=== PATIENT | male | born 1955 ===

== ENCOUNTER 2017-05-28 14:44 | Emergency (ER) | payer OTHER, SELFPAY ==
[2017-05-28 14:58] VITALS: BP 115/63; PULSE 83; RESP 20; TEMP 98.7; O2SAT 97
--- NOTE | 2017-05-28 16:03 | CT ---
PROCEDURE: CT HEAD WITHOUT CONTRAST. HISTORY: head injury, hit with rock, headache COMPARISON: None available. TECHNIQUE: Axial computed tomography images were obtained through the head/brain without intravenous contrast. Coronal and sagittal reconstructed images. Radiation dose: Total exam DLP = 843.31 mGy-cm. This CT exam was performed using one or more of the following dose reduction techniques: Automated exposure control, adjustment of the mA and/or kV according to patient size, and/or use of iterative reconstruction technique. FINDINGS: HEMORRHAGE: No intracranial hemorrhage. BRAIN: No mass effect or edema. No atrophy or chronic microvascular ischemic changes. VENTRICLES: Unremarkable. No hydrocephalus. CALVARIUM: Unremarkable. PARANASAL SINUSES: Unremarkable as visualized. No significant inflammatory changes. MASTOID AIR CELLS: Unremarkable as visualized. No inflammatory changes. OTHER FINDINGS: None. IMPRESSION: No acute intracranial abnormalities. No significant findings to account for the clinical presentation.
--- NOTE | 2017-05-28 16:14 | ED PDOC ---
HPI: Headache Time Seen by Provider: 05/28/17 15:14 Chief Complaint (Nursing): Headache Chief Complaint (Provider): Headache, scalp abrasion Past Medical History Vital Signs: Last Vital Signs Temp 98.7 F 05/28/17 14:57 Pulse 83 05/28/17 14:57 Resp 20 05/28/17 14:57 BP 115/63 05/28/17 14:57 Pulse Ox 97 05/28/17 14:57 - Family History Family History: States: Unknown Family Hx - Home Medications Home Medications: Ambulatory Orders Medication Instructions Recorded Tamsulosin [Flomax] 0.4 mg PO DAILY #30 cap 12/28/16 - Allergies Allergies/Adverse Reactions: Allergies Allergy/AdvReac Type Severity Reaction Status Date / Time No Known Allergies Allergy Verified 12/28/16 10:48 - ECG O2 Sat by Pulse Oximetry: 97 Disposition - Clinical Impression Clinical Impression: Head injury, Scalp abrasion - Disposition Disposition Time: 16:14 Condition: GOOD Instructions: Abrasion (ED) Forms: [employer] [facility] (Czech)
== END 2017-05-28 16:35 | disposition home or self-care (01) ==
LOC: H.ER 14:44
DX: S09.90XA Unspecified injury of head, initial encounter (principal); S00.81XA Abrasion of other part of head, initial encounter; W22.8XXA Striking against or struck by other objects, initial encounter; Y92.89 Other specified places as the place of occurrence of the external cause

== ENCOUNTER 2018-03-12 13:34 | Inpatient (IN) | payer SELFPAY ==
--- NOTE | 2018-03-12 14:23 | ED PDOC ---
HPI: SOB/CHF/COPD Time Seen by Provider: 03/12/18 14:00 Chief Complaint (Nursing): Respiratory Distress Chief Complaint (Provider): CHRISTINA History Per: Patient, Carboy Filler History/Exam Limitations: no limitations, language barrier Onset/Duration Of Symptoms: Days (three), Waxing/Waning, Intermittent Episodes Current Symptoms Are (Timing): Still Present Context: pt has ILD and sees a pulmonolgist Quality: Sharp Exacerbating Factor(s): Exertion, Laying Flat Current Respiratory Medications: See Home Med List, Albuterol, Prednisone Severity: Moderate Past Medical History Reviewed: Historical Data, Nursing Documentation, Vital Signs Vital Signs: Last Vital Signs Temp 98.7 F 03/12/18 13:51 Pulse 80 03/12/18 13:53 Resp 18 03/12/18 13:53 BP 141/80 03/12/18 13:51 Pulse Ox 95 03/12/18 18:18 - Family History Family History: States: Unknown Family Hx - Home Medications Home Medications: Ambulatory Orders Medication Instructions Recorded Amoxicillin/Clavulanate [Augmentin 1 tab PO BID 03/12/18 875 MG-125 MG] Budesonide/Formoterol Fumarate 2 puff IH Q12 03/12/18 [Symbicort 160-4.5 Mcg Inhaler] Fluticasone Nasal [Flonase] 2 spray ALIRIO DAILY PRN 03/12/18 Prednisone [Deltasone] 40 mg PO DAILY 03/12/18 - Allergies Allergies/Adverse Reactions: Allergies Allergy/AdvReac Type Severity Reaction Status Date / Time No Known Allergies Allergy Verified 12/28/16 10:48 Wells Criteria for PE - Wells Criteria for Pulmonary Embolism Clinical Signs and Symptoms of DVT: No P.E is #1 Diagnosis, or Equally Likely: No Heart Rate >100: No Immobilization at least 3 days;Surgery previous 4 weeks: No Previous, objectively diagnosed PE or DVT: No Hemoptysis: No Malignancy w/treatment within 6 months, or palliative: No Total Score: 0 Review of Systems ROS Statement: Except As Marked, All Systems Reviewed And Found Negative Respiratory: Positive for: Shortness of Breath, Pleuritic Pain, Wheezing Physical Exam - Reviewed Nursing Documentation Reviewed: Yes Vital Signs Reviewed: Yes - Physical Exam Appears: Positive for: Well, Non-toxic, Uncomfortable Head Exam: Positive for: ATRAUMATIC, NORMAL INSPECTION, NORMOCEPHALIC Skin: Positive for: Normal Color, Warm, Dry. Negative for: Diaphoresis, Jaundice ENT: Positive for: Normal ENT Inspection Neck: Positive for: Normal, Painless ROM, Supple. Negative for: Decreased ROM Cardiovascular/Chest: Positive for: Regular Rate, Rhythm. Negative for: Edema, Murmur, Bradycardia, Tachycardia, Friction Rub Respiratory: Positive for: Crackles, Wheezing. Negative for: Decreased Breath Sounds, Accessory Muscle Use, Respiratory Distress, Plerual Rub Pulses-Carotid (L): 2+ Pulses-Carotid (R): 2+ Pulses-Radial (L): 2+ Pulses-Radial (R): 2+ - Laboratory Results Result Diagrams: 03/12/18 14:56 03/12/18 14:56 - ECG ECG: Positive for: Interpreted By Me ECG Rhythm: Positive for: Normal QRS, Normal ST Segment O2 Sat by Pulse Oximetry: 95 Nebulizer Treatments/Peak Flow - Duonebs Number of Bronchodilator Doses given?: 3 - Steroid Treatment Steroid: IV - Clinical Response Clinical Response: Unchanged Medical Decision Making Medical Decision Making: R/O acute pulmonary findings no PNA discussed case with pulmonolgist and PMD admit for acute SOB/dypsnea to tely Disposition - Clinical Impression Clinical Impression: Shortness of breath at rest, Acute dyspnea - Patient ED Disposition Is Patient to be Admitted: Yes (Admit under Dr Chen Service) Discussed With : Suzanne Mir (Pulmonolgist: Indicates patient has ILD of chronic nature, but most probably has overlying conditions as well) Doctor Will See Patient In The: Hospital Counseled Patient/Family Regarding: Studies Performed, Diagnosis - Disposition Disposition Time: 18:17 Condition: STABLE - Pt Status Changed To: Hospital Disposition Of: Inpatient - Admit Certification Admit to Inpatient:: After my assessment, the patient will require hospitalization for at least two midnights. This is because of the severity of symptoms shown, intensity of services needed, and/or the medical risk in this patient being treated as an outpatient.
--- NOTE | 2018-03-12 14:35 | RAD ---
HISTORY: [place] COMPARISON: Chest radiograph dated 01/20/2018 TECHNIQUE: Chest PA and lateral FINDINGS: LUNGS: Bilateral fibrotic and cystic change. No focal consolidation. PLEURA: No significant pleural effusion identified. No pneumothorax apparent. CARDIOVASCULAR: Cardiomediastinal silhouette unchanged. OSSEOUS STRUCTURES: Unchanged. VISUALIZED UPPER ABDOMEN: Normal. OTHER FINDINGS: None. IMPRESSION: Grossly stable appearance of bilateral fibrotic and cystic change. No definite consolidation or pleural effusion.
[2018-03-12 15:00] LABS: BASO % 0.3 % (0.0-2.0); EOS % 0.1 % (0.0-4.0); HEMOGLOBIN 14.8 g/dL (12.0-18.0); LYMPH # 0.5 K/uL (1.0-4.3); LYMPH % 4.9 % (20.0-40.0); MEAN CELL VOLUME 96.5 fl (80.0-94.0); MEAN CORPUSCULAR HEMOGLOBIN 32.6 pg (27.0-31.0); MEAN CORPUSCULAR HGB CONC 33.7 g/dL (33.0-37.0); MONO # 0.5 K/uL (0.0-0.8); MONO % 4.9 % (0.0-10.0); NEUT # 8.7 K/uL (1.8-7.0); NEUT % 89.8 % (50.0-75.0); PLATELET COUNT 318 K/uL (130-400); RBC 4.56 Mil/uL (4.40-5.90); RED CELL DISTRIBUTION WIDTH 14.5 % (11.5-14.5); WHITE BLOOD COUNT 9.7 K/uL (4.8-10.8)
[2018-03-12] MEDS ORDERED: Albuterol-Ipratrop 3 mg / 0.5 (3 ml) UD INH STA (15:06)
[2018-03-12 15:10] LABS: INR 1.1 (0.9-1.2); PROTHROMBIN TIME 12.1 Seconds (9.8-13.1)
[2018-03-12] MEDS ORDERED: Albuterol-Ipratrop 3 mg / 0.5 (3 ml) UD ONE (15:12)
[2018-03-12 15:17] LABS: ALB/GLOB RATIO 0.9 (1.0-2.1); ALBUMIN 3.1 g/dL (3.5-5.0); ALT/SGPT 66 U/L (21-72); AST/SGOT 35 U/L (17-59); BLOOD UREA NITROGEN 22 mg/dl (9-20); CALCIUM 9.4 mg/dL (8.4-10.2); GFR AFRICAN-AMERICAN > 60; GFR NON-AFRICAN AMERICAN > 60
[2018-03-12 15:28] LABS: B-TYPE NATRIURETIC PEPTIDE 205 pg/ml (0-900)
[2018-03-12] MEDS ORDERED: methylPREDNISolone 60 MG in Sodium Chloride 0.9% 50 ML IVP STA (15:33)
[2018-03-12 16:11] LABS: ANISOCYTOSIS SLIGHT; BANDS 2 % (0-2); LYMPHOCYTE 5 % (20-50); MONOCYTE 4 % (0-10); MYELOCYTE 1 % (0-0); NEUTROPHIL 88 % (42-75); PLATELET ESTIMATE NORMAL (NORMAL); TOTAL CELLS COUNTED 100
[2018-03-12 16:12] LABS: LARGE PLATELETS PRESENT
[2018-03-12] MEDS ORDERED: Albuterol-Ipratrop 3 mg / 0.5 (3 ml) UD INH PRN (23:03)
[2018-03-13 00:08] LABS: BLOOD UREA NITROGEN 21 mg/dl (9-20); CALCIUM 9.6 mg/dL (8.4-10.2); GFR AFRICAN-AMERICAN > 60; GFR NON-AFRICAN AMERICAN > 60; HDL CHOLESTEROL 22 MG/DL (30-70)
[2018-03-13 00:18] LABS: LDL CHOLESTEROL 88 mg/dL (0-129)
[2018-03-13 05:11] LABS: HEMOGLOBIN 15.7 g/dL (12.0-18.0); MEAN CELL VOLUME 96.5 fl (80.0-94.0); MEAN CORPUSCULAR HEMOGLOBIN 32.8 pg (27.0-31.0); RBC 4.78 Mil/uL (4.40-5.90); RED CELL DISTRIBUTION WIDTH 14.7 % (11.5-14.5); WHITE BLOOD COUNT 12.6 K/uL (4.8-10.8)
[2018-03-13] MEDS ORDERED: Pneumococcal 23-Valent Vaccine IM ONE (06:00)
[2018-03-13] MEDS: Sodium Chloride 0.9% 1,000 ML IV SCH ×2 (06:17→12:00)
[2018-03-13] MEDS: Fluticasone-Salmeterol 250-50mcg Diskus IH SCH ×2 (08:48→21:34)
[2018-03-13] MEDS ORDERED: Patient's Own Med (Budesonide/Formoterol Fumarate [Symbicort 160-4.5 Mcg Inhaler] 2 PUFF) IH SCH (09:00)
--- NOTE | 2018-03-13 10:57 | CARD ---
APPROVED REPORT EKG Measurement Heart [id number] <Conclusion> Normal sinus rhythm Possible Left atrial enlargement Borderline ECG
[2018-03-13] MEDS ORDERED: Lidocaine 2% Jelly (Uro-Jet) TOP ONE (12:31)
--- NOTE | 2018-03-13 13:20 | CP.PCM.PN ---
Subjective - Date & Time of Evaluation Date of Evaluation: 03/13/18 Time of Evaluation: 13:17 - Subjective Subjective: 62 year old male admited to telemetry w sob pt having difficulty passing arredondo. A urinary retentionP Arredondo inserted ,suggest urine c&s leave arredondo. elective gu eval after med conditions maximally impoved. Riddhi Objective - Vital Signs/Intake and Output Vital Signs (last 24 hours): Temp Pulse Resp BP Pulse Ox 97.4 F L 74 20 140/74 99 03/13/18 12:53 03/13/18 12:53 03/13/18 12:53 03/13/18 12:53 03/13/18 12:53 - Medications Medications: Current Medications Acetaminophen (Tylenol 325mg Tab) 650 mg PO Q6 PRN PRN Reason: Pain, Mild (1-3) Albuterol/Ipratropium (Duoneb 3 Mg/0.5 Mg (3 Ml) Ud) 3 ml INH RQ6 PRN PRN Reason: Shortness of Breath Fluticasone Propionate (Flonase) 2 spr ALIRIO DAILY PRN PRN Reason: Nasal congestion Sodium Chloride (Sodium Chloride 0.9%) 1,000 mls @ 80 mls/hr IV .[id number] [facility] Stop: 03/13/18 23:05 Last Admin: 03/13/18 06:17 Dose: 80 mls/hr Prednisone (Prednisone Tab) 40 mg PO DAILY [facility] Last Admin: 03/13/18 08:48 Dose: 40 mg Fluticasone/Salmeterol (Advair Diskus 250/50) 1 puff IH Q12 [facility] Last Admin: 03/13/18 08:48 Dose: 1 puff - Labs Labs: 03/13/18 04:20 03/12/18 23:55 PT 12.1 Seconds (9.8-13.1) 03/12/18 14:56 INR 1.1 (0.9-1.2) 03/12/18 14:56
[2018-03-14] MEDS: Fluticasone-Salmeterol 250-50mcg Diskus IH SCH ×2 (09:56→21:50)
--- NOTE | 2018-03-14 15:04 | CP.PCM.HP ---
History of Present Illness - History of Present Illness History of Present Illness: This is a 62 y/o male admitted for increasing SOB and cough for the past few days. He has been on daily prednisone and budesonide for a possible chronic lung disease. CXR at the ER showed bilateral fibrotc and cystic changes. Past Patient History - Past Medical History & Family History Past Medical History?: No - Past Social History Smoking Status: Unknown If Ever Smoked - CARDIAC Hx Cardiac Disorders: No - PULMONARY Hx Respiratory Disorders: Yes (ILD) - NEUROLOGICAL Hx Neurological Disorder: No - HEENT Hx HEENT Problems: No - RENAL Hx Chronic Kidney Disease: No - ENDOCRINE/METABOLIC Hx Endocrine Disorders: No - HEMATOLOGICAL/ONCOLOGICAL Hx Blood Disorders: No - INTEGUMENTARY Hx Dermatological Problems: No - MUSCULOSKELETAL/RHEUMATOLOGICAL Hx Musculoskeletal Disorders: No Hx Falls: No - GASTROINTESTINAL Hx Gastrointestinal Disorders: No - GENITOURINARY/GYNECOLOGICAL Hx Genitourinary Disorders: No - PSYCHIATRIC Hx Psychophysiologic Disorder: No Hx Substance Use: No - SURGICAL HISTORY Hx Surgeries: No - ANESTHESIA Hx Anesthesia: No Meds Allergies/Adverse Reactions: Allergies Allergy/AdvReac Type Severity Reaction Status Date / Time No Known Allergies Allergy Verified 12/28/16 10:48 Results - Vital Signs Recent Vital Signs: Last Vital Signs Temp 98.0 F 03/14/18 12:12 Pulse 68 03/14/18 12:12 Resp 20 03/14/18 12:12 BP 110/50 L 03/14/18 12:12 Pulse Ox 96 03/14/18 12:12 - Labs Result Diagrams: 03/13/18 04:20 03/12/18 23:55
--- NOTE | 2018-03-14 15:06 | CP.PCM.PN ---
Subjective - Date & Time of Evaluation Date of Evaluation: 03/14/18 Time of Evaluation: 15:06 - Subjective Subjective: Patient claimns that he feels better but still with recurrent SOB Noted persistent rhonchi and crepitations on both mid lung right worse than left Objective - Vital Signs/Intake and Output Vital Signs (last 24 hours): Temp Pulse Resp BP Pulse Ox 98.0 F 68 20 110/50 L 96 03/14/18 12:12 03/14/18 12:12 03/14/18 12:12 03/14/18 12:12 03/14/18 12:12 Intake and Output: 03/14/18 03/14/18 06:59 18:59 Output Total 1300 Balance -1300 - Medications Medications: Current Medications Acetaminophen (Tylenol 325mg Tab) 650 mg PO Q6 PRN PRN Reason: Pain, Mild (1-3) Albuterol/Ipratropium (Duoneb 3 Mg/0.5 Mg (3 Ml) Ud) 3 ml INH RQ6 PRN PRN Reason: Shortness of Breath Fluticasone Propionate (Flonase) 2 spr ALIRIO DAILY PRN PRN Reason: Nasal congestion Prednisone (Prednisone Tab) 40 mg PO DAILY [facility] Last Admin: 03/14/18 09:58 Dose: 40 mg Fluticasone/Salmeterol (Advair Diskus 250/50) 1 puff IH Q12 [facility] Last Admin: 03/14/18 09:56 Dose: 1 puff - Labs Labs: 03/13/18 04:20 03/12/18 23:55 PT 12.1 Seconds (9.8-13.1) 03/12/18 14:56 INR 1.1 (0.9-1.2) 03/12/18 14:56 - Head Exam Head Exam: NORMAL INSPECTION - Eye Exam Eye Exam: Normal appearance - ENT Exam ENT Exam: Mucous Membranes Moist - Respiratory Exam Respiratory Exam: Rhonchi - Cardiovascular Exam Cardiovascular Exam: REGULAR RHYTHM Assessment and Plan (1) Interstitial pulmonary fibrosis Status: Acute (2) Acute dyspnea Status: Acute - Assessment and Plan (Free Text) Plan: Cont meds Cont tx Cont resp tx dc plans
[2018-03-15] MEDS: Fluticasone-Salmeterol 250-50mcg Diskus IH SCH ×2 (09:26→22:00)
[2018-03-15] MEDS ORDERED: Iohexol 300 100 ML IJ ONE (09:27)
[2018-03-15] MEDS ORDERED: Sodium Chloride 0.9% 50 ML IV ONE (09:27)
[2018-03-15] MEDS ORDERED: methylPREDNISolone 80 MG in Sodium Chloride 0.9% 50 ML IVPB SCH (11:15)
--- NOTE | 2018-03-15 11:43 | CT ---
PROCEDURE: CT Chest with contrast HISTORY: abnormal CXR COMPARISON: 01/20/2018. TECHNIQUE: Contiguous axial images were obtained through the chest without an with intravenous contrast enhancement. Sagittal and coronal reconstructions were performed. IV contrast: 95 cc Omnipaque 300 Radiation dose (DLP): 437.91 mGy-cm. This CT exam was performed using one or more of the following dose reduction techniques: Automated exposure control, adjustment of the mA and/or kV according to patient size, and/or use of iterative reconstruction technique. FINDINGS: LUNGS: Since the prior examination, there has been no significant interval change in cystic changes in both lungs worse in the left apex and lingula, bilateral subpleural honeycombing and interstitial fibrosis 0 worse in the lower lobes. There is no mass or consolidation. There are no endobronchial lesions. MEDIASTINUM: The aorta is not dilated. There is borderline cardiomegaly. No pericardial effusion. Main pulmonary artery unremarkable. No vascular congestion. Subcentimeter subcarinal lymph nodes are likely reactive in etiology. No pathologic lymphadenopathy. No abnormal enhancement. PLEURA: No pleural fluid. No pneumothorax. BONES: No fracture. No destructive lesion. Within normal limits for the patient's age. UPPER ABDOMEN: Grossly unremarkable. OTHER FINDINGS: None. IMPRESSION: Little interval change in diffuse interstitial fibrosis and cystic changes in the lungs, worse in the left lung. No active pulmonary disease.
[2018-03-15 12:12] LABS: ABG ALLEN TEST YES; ARTERIAL BLOOD GAS HCO3 27.8 mmol/L (21-28); ARTERIAL BLOOD GAS HEMOGLOBIN 15.9 g/dL (11.7-17.4); ARTERIAL BLOOD GAS O2 CAPACITY 21.6 mL/dL (16-24); ARTERIAL BLOOD GAS O2 CONTENT 20.5 ML/dL (15-23); ARTERIAL BLOOD GAS O2 SAT 94.9 % (95-98); ARTERIAL BLOOD GAS PCO2 45 mm/Hg (35-45); ARTERIAL BLOOD GAS PH 7.42 (7.35-7.45); ARTERIAL BLOOD GAS PO2 62 mm/Hg (80-100); ARTERIAL BLOOD GAS TCO2 30.6 mmol/L (22-28)
[2018-03-15] MEDS: Pantoprazole 40 mg EC Tab PO SCH (13:11)
[2018-03-15] MEDS: Albuterol-Ipratrop 3 mg / 0.5 (3 ml) UD INH SCH ×2 (13:24→19:27)
[2018-03-15] MEDS: MethylPREDNISolone 40 mg Vial IV SCH (18:55)
--- NOTE | 2018-03-16 00:29 | CP.PCM.PN ---
Subjective - Date & Time of Evaluation Date of Evaluation: 03/15/18 Time of Evaluation: 18:30 - Subjective Subjective: Belinda feels a lot better Has no fever Has no chest pain Still with rhonchi CT chest showed chronic changes and interstitial fibrosis. Claims to have better response with MDI's and Objective - Vital Signs/Intake and Output Vital Signs (last 24 hours): Temp Pulse Resp BP Pulse Ox 97.4 F L 61 18 107/61 95 03/16/18 00:16 03/16/18 00:16 03/16/18 00:16 03/16/18 00:16 03/16/18 00:16 Intake and Output: 03/15/18 03/16/18 18:59 06:59 Intake Total 1000 Output Total 750 Balance 250 - Medications Medications: Current Medications Acetaminophen (Tylenol 325mg Tab) 650 mg PO Q6 PRN PRN Reason: Pain, Mild (1-3) Albuterol/Ipratropium (Duoneb 3 Mg/0.5 Mg (3 Ml) Ud) 3 ml INH RQ6 [facility] Last Admin: 03/15/18 19:27 Dose: 3 ml Fluticasone Propionate (Flonase) 2 spr ALIRIO DAILY PRN PRN Reason: Nasal congestion Methylprednisolone (Solu-Medrol) 80 mg IV Q8 [facility] Last Admin: 03/15/18 18:55 Dose: 80 mg Pantoprazole Sodium (Protonix Ec Tab) 40 mg PO DAILY [facility] Last Admin: 03/15/18 13:11 Dose: 40 mg Fluticasone/Salmeterol (Advair Diskus 250/50) 1 puff IH Q12 [facility] Last Admin: 03/15/18 22:00 Dose: 1 puff - Labs Labs: 03/13/18 04:20 03/12/18 23:55 PT 12.1 Seconds (9.8-13.1) 03/12/18 14:56 INR 1.1 (0.9-1.2) 03/12/18 14:56 - Head Exam Head Exam: NORMAL INSPECTION - Eye Exam Eye Exam: Normal appearance - ENT Exam ENT Exam: Mucous Membranes Moist - Respiratory Exam Respiratory Exam: Rales, NORMAL BREATHING PATTERN - Cardiovascular Exam Cardiovascular Exam: REGULAR RHYTHM - GI/Abdominal Exam GI & Abdominal Exam: Normal Bowel Sounds - Neurological Exam Neurological Exam: Alert, Awake, Oriented x3 Assessment and Plan (1) Interstitial pulmonary fibrosis Status: Acute - Assessment and Plan (Free Text) Plan: Cont meds Cont tx Cont MDI's pulmonary eval outpatient
[2018-03-16] MEDS: Albuterol-Ipratrop 3 mg / 0.5 (3 ml) UD INH SCH ×4 (01:00→19:03)
[2018-03-16] MEDS: MethylPREDNISolone 40 mg Vial IV SCH (02:28)
[2018-03-16] MEDS: Fluticasone-Salmeterol 250-50mcg Diskus IH SCH ×2 (08:32→21:55)
--- NOTE | 2018-03-16 08:32 | CP.PCM.PN ---
Subjective - Date & Time of Evaluation Date of Evaluation: 03/16/18 Time of Evaluation: 08:31 - Subjective Subjective: FEELS BETTER SOB IMPROVED COUGH LESS Objective - Vital Signs/Intake and Output Vital Signs (last 24 hours): Temp Pulse Resp BP Pulse Ox 97.7 F 63 18 113/54 L 95 03/16/18 07:56 03/16/18 07:56 03/16/18 07:56 03/16/18 07:56 03/16/18 07:56 Intake and Output: 03/16/18 03/16/18 06:59 18:59 Intake Total 400 Output Total 1100 Balance -700 - Medications Medications: Current Medications Acetaminophen (Tylenol 325mg Tab) 650 mg PO Q6 PRN PRN Reason: Pain, Mild (1-3) Albuterol/Ipratropium (Duoneb 3 Mg/0.5 Mg (3 Ml) Ud) 3 ml INH RQ6 [facility] Last Admin: 03/16/18 07:35 Dose: 3 ml Fluticasone Propionate (Flonase) 2 spr ALIRIO DAILY PRN PRN Reason: Nasal congestion Methylprednisolone 40 mg/ (Sodium Chloride) 50 mls @ 100 mls/hr IVPB Q12 [facility] Pantoprazole Sodium (Protonix Ec Tab) 40 mg PO DAILY [facility] Last Admin: 03/15/18 13:11 Dose: 40 mg Fluticasone/Salmeterol (Advair Diskus 250/50) 1 puff IH Q12 [facility] Last Admin: 03/15/18 22:00 Dose: 1 puff - Labs Labs: 03/13/18 04:20 03/12/18 23:55 PT 12.1 Seconds (9.8-13.1) 03/12/18 14:56 INR 1.1 (0.9-1.2) 03/12/18 14:56 - Constitutional Appears: No Acute Distress - Head Exam Head Exam: ATRAUMATIC, NORMAL INSPECTION, NORMOCEPHALIC - Eye Exam Eye Exam: EOMI, Normal appearance, PERRL Pupil Exam: NORMAL ACCOMODATION, PERRL - ENT Exam ENT Exam: Mucous Membranes Moist, Normal Exam - Neck Exam Neck Exam: Full ROM, Normal Inspection. absent: Lymphadenopathy - Respiratory Exam Respiratory Exam: Prolonged Expiratory Phase, Rales, NORMAL BREATHING PATTERN - Cardiovascular Exam Cardiovascular Exam: REGULAR RHYTHM, +S1, +S2. absent: Murmur - GI/Abdominal Exam GI & Abdominal Exam: Soft, Normal Bowel Sounds. absent: Tenderness - Rectal Exam Rectal Exam: NORMAL INSPECTION - Extremities Exam Extremities Exam: Full ROM, Normal Capillary Refill, Normal Inspection. absent : Joint Swelling, Pedal Edema - Back Exam Back Exam: NORMAL INSPECTION - Neurological Exam Neurological Exam: Alert, Awake, CN II-XII Intact, Normal Gait, Oriented x3 - Psychiatric Exam Psychiatric exam: Normal Affect, Normal Mood - Skin Skin Exam: Dry, Intact, Normal Color, Warm Assessment and Plan - Assessment and Plan (Free Text) Assessment: ACUTE EXAC OF PULMONARY FIBROSIS URI Plan: TAPER STEROIDS
[2018-03-16] MEDS: Pantoprazole 40 mg EC Tab PO SCH (08:33)
--- NOTE | 2018-03-16 08:33 | CON ---
DATE: HISTORY OF PRESENT ILLNESS: Mr. Abarca is a 62-year-old male who was referred for pulmonary evaluation by Dr. Martinez who was admitted with shortness of breath, exercise intolerance, cough, and thick tenacious mucus for the past several days prior to presentation. He indicated that he had upper respiratory tract infection over the past several days and has since then been coughing up thick tenacious mucus. He came to the emergency room where he was advised therapy and workup. PAST MEDICAL HISTORY: Pulmonary fibrosis (interstitial lung disease and COPD). FAMILY HISTORY: Non-revealing. SOCIAL HISTORY: Socially, he quit smoking more than 30 years ago, but smoked about a pack a week for many years. 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 PHYSICAL EXAMINATION: GENERAL: The patient is alert and oriented x3. He is sitting in bed and family at bedside. VITAL SIGNS: Blood pressure of 124/76, pulse of 64, respiratory rate of 20. He is afebrile. O2 sat is 97% on 2 liters nasal cannula. SKIN: Shows fair turgor. HEENT: Pupils are equal and reactive to light and accommodation. Mouth shows fair hygiene. NECK: JVP flat. LUNGS: Bilateral rales with dullness at the bases. HEART: Regular. ABDOMEN: Soft and nontender, no organomegaly. EXTREMITIES: Mild clubbing of all extremities but no cyanosis. No edema. CENTRAL NERVOUS SYSTEMS: Grossly intact. LABORATORY DATA: WBC 12.6, hemoglobin 15.7, and platelet count 357,000. Sodium 138, potassium 4.4, BUN 21, and creatinine 0.8. Troponin less than 0.012. EKG, normal sinus rhythm, possible left atrial enlargement. Chest x-ray, bilateral and cystic changes, no definite consolidation or effusion. IMPRESSION: Acute exacerbation of interstitial lung disease (pulmonary fibrosis) with superimposed chronic obstructive pulmonary disease and upper respiratory tract infection. PLAN: The plan is intravenous steroids, aerolized bronchodilators, and oxygen supplementation. We would obtain baseline ABG to rule out hypoxemia. We will continue to follow with you. Case discussed with the patient and family at length. Barrett Estrada MD [facility] # [id number]
[2018-03-16 08:57] LABS: BASO # 0.1 K/uL (0.0-0.2); BASO % 0.4 % (0.0-2.0); HEMOGLOBIN 15.6 g/dL (12.0-18.0); LYMPH # 1.1 K/uL (1.0-4.3); LYMPH % 5.4 % (20.0-40.0); MEAN CELL VOLUME 96.5 fl (80.0-94.0); MEAN CORPUSCULAR HEMOGLOBIN 32.3 pg (27.0-31.0); MEAN CORPUSCULAR HGB CONC 33.5 g/dL (33.0-37.0); MEAN PLATELET VOLUME 7.9 fl (7.2-11.7); MONO # 0.3 K/uL (0.0-0.8); MONO % 1.7 % (0.0-10.0); NEUT # 18.4 K/uL (1.8-7.0); NEUT % 92.5 % (50.0-75.0); PLATELET COUNT 442 K/uL (130-400); RBC 4.83 Mil/uL (4.40-5.90); RED CELL DISTRIBUTION WIDTH 14.3 % (11.5-14.5); WHITE BLOOD COUNT 19.9 K/uL (4.8-10.8)
[2018-03-16] MEDS: levoFLOXacin 500 MG TAB PO SCH (08:57)
[2018-03-16] MEDS ORDERED: methylPREDNISolone 40 MG in Sodium Chloride 0.9% 50 ML IVPB SCH (09:00)
[2018-03-16] MEDS ORDERED: MethylPREDNISolone 40 mg Vial IVP SCH ×2 (09:00→09:12)
[2018-03-16 09:10] LABS: ALB/GLOB RATIO 0.9 (1.0-2.1); ALBUMIN 3.3 g/dL (3.5-5.0); ALT/SGPT 52 U/L (21-72); AST/SGOT 21 U/L (17-59); BLOOD UREA NITROGEN 22 mg/dl (9-20); CALCIUM 9.6 mg/dL (8.4-10.2); GFR AFRICAN-AMERICAN > 60; GFR NON-AFRICAN AMERICAN > 60
--- NOTE | 2018-03-16 09:29 | CON ---
DATE: 03/13/2018 FACILITY: [facility]. CHIEF COMPLAINT: Difficulty in urination. HISTORY OF PRESENT ILLNESS: This staff has evidently tried to place a Pedraza catheter and has been unsuccessful. The patient has had some difficulty emptying his bladder. He says he was having no history of difficulty prior to being admitted to the hospital straining to urinate and urinating only in small amounts. He states he had a similar episode when he was hospitalized in the past several months ago. REVIEW OF SYSTEMS: RESPIRATORY: The patient is complaining of acute shortness of breath and is in the telemetry unit oxygen. He has no history of asthma or wheezing. CARDIAC: The patient has no chest pain or palpitations. GASTROINTESTINAL: The patient has no nauseousness, vomiting or change in bowel habits. GENITOURINARY: The patient gives a history of difficulty in urination since admission. He has had similar episodes in the past. He is complaining of difficulty in emptying his bladder, slow strain, having to exert to urinate complete emptying. ORTHOPEDIC: Noncontributory. SOCIAL HISTORY: The patient neither smokes nor drinks. I have also reviewed the patient's chart, his vital signs and laboratory data. PHYSICAL EXAMINATION: VITAL SIGNS: Within normal limits. HEENT: Within normal limits. NECK: Supple. There are no bruits, nodes or masses. CHEST: Clear bilaterally. There is no rales or rhonchi. HEART: Normal sinus rhythm. There is no murmur. ABDOMEN: Soft and nontender. Bladder is distended three fingers above the suprapubic bone. EXTREMITIES: Normal. Vascular and orthopedic examination is normal. NEUROLOGIC: Normal. IMPRESSION: My impression is difficulty in urination due to bladder outlet obstruction. PLAN: I will attempt to insert the Pedraza using . The patient underwent difficult insertion of Pedraza. Paul Hannon MD
[2018-03-16 11:07] LABS: BANDS 2 % (0-2); LYMPHOCYTE 4 % (20-50); MYELOCYTE 1 % (0-0); NEUTROPHIL 92 % (42-75); REACTIVE LYMPHOCYTES 1 % (0-0); TOTAL CELLS COUNTED 100
[2018-03-16 11:12] LABS: PLATELET ESTIMATE INCREASED (NORMAL)
[2018-03-16 11:13] LABS: GIANT PLATELETS PRESENT; LARGE PLATELETS PRESENT; TEARDROP CELLS SLIGHT
[2018-03-16 14:24] LABS: MONOCYTE 0 % (0-10)
--- NOTE | 2018-03-16 15:05 | CP.PCM.PN ---
Subjective - Date & Time of Evaluation Date of Evaluation: 03/16/18 Time of Evaluation: 07:20 - Subjective Subjective: Patient seen and examined bedside with Dr Chen. Patient reports feeling better, reports less SOb. denies chest pain, abd pain, leg swelling Objective - Vital Signs/Intake and Output Vital Signs (last 24 hours): Temp Pulse Resp BP Pulse Ox 97.7 F 81 18 124/64 94 L 03/16/18 12:00 03/16/18 12:00 03/16/18 12:00 03/16/18 12:00 03/16/18 12:00 Intake and Output: 03/16/18 03/16/18 06:59 18:59 Intake Total 400 Output Total 1100 Balance -700 - Medications Medications: Current Medications Acetaminophen (Tylenol 325mg Tab) 650 mg PO Q6 PRN PRN Reason: Pain, Mild (1-3) Albuterol/Ipratropium (Duoneb 3 Mg/0.5 Mg (3 Ml) Ud) 3 ml INH RQ6 [facility] Last Admin: 03/16/18 13:04 Dose: 3 ml Fluticasone Propionate (Flonase) 2 spr ALIRIO DAILY PRN PRN Reason: Nasal congestion Levofloxacin (Levaquin) 500 mg PO DAILY [facility] PRN Reason: Protocol Last Admin: 03/16/18 08:57 Dose: 500 mg Methylprednisolone (Solu-Medrol) 20 mg IVP Q12 [facility] Pantoprazole Sodium (Protonix Ec Tab) 40 mg PO DAILY [facility] Last Admin: 03/16/18 08:33 Dose: 40 mg Fluticasone/Salmeterol (Advair Diskus 250/50) 1 puff IH Q12 [facility] Last Admin: 03/16/18 08:32 Dose: 1 puff - Labs Labs: 03/16/18 08:49 03/16/18 08:49 PT 12.1 Seconds (9.8-13.1) 03/12/18 14:56 INR 1.1 (0.9-1.2) 03/12/18 14:56 - Constitutional Appears: Non-toxic, No Acute Distress - Head Exam Head Exam: ATRAUMATIC, NORMOCEPHALIC - Eye Exam Eye Exam: Normal appearance - ENT Exam ENT Exam: Mucous Membranes Moist - Respiratory Exam Respiratory Exam: Decreased Breath Sounds. absent: Rales, Rhonchi, Wheezes - Cardiovascular Exam Cardiovascular Exam: REGULAR RHYTHM, +S1, +S2 - GI/Abdominal Exam GI & Abdominal Exam: Soft, Normal Bowel Sounds. absent: Tenderness - Extremities Exam Extremities Exam: Normal Inspection. absent: Pedal Edema - Back Exam Back Exam: NORMAL INSPECTION - Neurological Exam Neurological Exam: Alert, Awake, Oriented x3 - Psychiatric Exam Psychiatric exam: Normal Mood - Skin Skin Exam: Intact Assessment and Plan (1) Interstitial pulmonary fibrosis Assessment & Plan: -pulmonary consult appreciated -c/w steroids, abx, duoneb Status: Acute (2) Leukocytosis Assessment & Plan: may be 2/2 steroids vs infection -f/u cbc -c/w abx Status: Acute (3) DVT prophylaxis Assessment & Plan: -lovenox 40 mg sc daily Status: Acute
[2018-03-16] MEDS: Enoxaparin 40 mg Syringe SC SCH (16:23)
[2018-03-17] MEDS: Albuterol-Ipratrop 3 mg / 0.5 (3 ml) UD INH SCH ×4 (01:01→20:16)
[2018-03-17 06:54] LABS: HEMOGLOBIN 15.8 g/dL (12.0-18.0); MEAN CELL VOLUME 97.4 fl (80.0-94.0); MEAN CORPUSCULAR HEMOGLOBIN 32.7 pg (27.0-31.0); MEAN CORPUSCULAR HGB CONC 33.6 g/dL (33.0-37.0); RBC 4.83 Mil/uL (4.40-5.90); RED CELL DISTRIBUTION WIDTH 14.8 % (11.5-14.5); WHITE BLOOD COUNT 21.4 K/uL (4.8-10.8)
--- NOTE | 2018-03-17 09:02 | CP.PCM.PN ---
Subjective - Date & Time of Evaluation Date of Evaluation: 03/17/18 Time of Evaluation: 07:25 - Subjective Subjective: Patient seen and examined bedside with Dr Chen. Patient reports feeling better, reports less SOb. denies chest pain, abd pain, leg swelling WBC high today. Will dc steroid. Ordered ua, urine cx Objective - Vital Signs/Intake and Output Vital Signs (last 24 hours): Temp Pulse Resp BP Pulse Ox 97.5 F L 81 18 125/62 93 L 03/17/18 08:04 03/17/18 08:04 03/17/18 08:04 03/17/18 08:04 03/17/18 08:04 Intake and Output: 03/17/18 03/17/18 06:59 18:59 Intake Total 300 Output Total 800 Balance -500 - Medications Medications: Current Medications Acetaminophen (Tylenol 325mg Tab) 650 mg PO Q6 PRN PRN Reason: Pain, Mild (1-3) Albuterol/Ipratropium (Duoneb 3 Mg/0.5 Mg (3 Ml) Ud) 3 ml INH RQ6 [facility] Last Admin: 03/17/18 08:20 Dose: 3 ml Enoxaparin Sodium (Lovenox) 40 mg SC DAILY [facility] PRN Reason: Protocol Last Admin: 03/16/18 16:23 Dose: 40 mg Fluticasone Propionate (Flonase) 2 spr ALIRIO DAILY PRN PRN Reason: Nasal congestion Levofloxacin (Levaquin) 500 mg PO DAILY [facility] PRN Reason: Protocol Last Admin: 03/16/18 08:57 Dose: 500 mg Methylprednisolone (Solu-Medrol) 20 mg IVP Q12 [facility] Last Admin: 03/16/18 21:56 Dose: 20 mg Pantoprazole Sodium (Protonix Ec Tab) 40 mg PO DAILY [facility] Last Admin: 03/16/18 08:33 Dose: 40 mg Fluticasone/Salmeterol (Advair Diskus 250/50) 1 puff IH Q12 [facility] Last Admin: 03/16/18 21:55 Dose: 1 puff - Labs Labs: 03/17/18 05:55 03/16/18 08:49 PT 12.1 Seconds (9.8-13.1) 03/12/18 14:56 INR 1.1 (0.9-1.2) 05/25/18 14:56 Assessment and Plan - Assessment and Plan (Free Text) Plan: Assessment and Plan (1) Interstitial pulmonary fibrosis Assessment & Plan: -pulmonary consult appreciated -c/w steroids, abx, duoneb Status: Acute (2) Leukocytosis Assessment & Plan: may be 2/2 steroids vs infection -wbc 21.4 -c/w abx -ua, urine cx.pt on arredondo Status: Acute (3) DVT prophylaxis Assessment & Plan: -lovenox 40 mg sc daily Status: Acute
[2018-03-17] MEDS: Enoxaparin 40 mg Syringe SC SCH (09:32)
[2018-03-17] MEDS: Pantoprazole 40 mg EC Tab PO SCH (09:32)
[2018-03-17] MEDS: Fluticasone-Salmeterol 250-50mcg Diskus IH SCH ×2 (09:32→21:47)
[2018-03-17] MEDS: levoFLOXacin 500 MG TAB PO SCH (09:32)
[2018-03-17 19:05] LABS: URINE BILIRUBIN NEGATIVE (NEGATIVE); URINE BLOOD LARGE (NEGATIVE); URINE CLARITY SLIGHTY-CLOUDY (Clear); URINE COLOR YELLOW (YELLOW); URINE GLUCOSE (UA) NEG (Normal); URINE LEUKOCYTE ESTERASE NEG Leu/uL (Negative); URINE PROTEIN NEGATIVE (NEGATIVE); URINE UROBILINOGEN 0.2-1.0 mg/dL (0.2-1.0)
[2018-03-18] MEDS: Albuterol-Ipratrop 3 mg / 0.5 (3 ml) UD INH SCH ×3 (01:04→13:53)
[2018-03-18 06:44] LABS: BASO % 0.1 % (0.0-2.0); EOS # 0.2 K/uL (0.0-0.7); EOS % 1.3 % (0.0-4.0); HEMOGLOBIN 15.5 g/dL (12.0-18.0); LYMPH # 1.7 K/uL (1.0-4.3); MEAN CELL VOLUME 96.4 fl (80.0-94.0); MEAN CORPUSCULAR HEMOGLOBIN 32.7 pg (27.0-31.0); MEAN CORPUSCULAR HGB CONC 33.9 g/dL (33.0-37.0); MEAN PLATELET VOLUME 7.6 fl (7.2-11.7); MONO % 7.7 % (0.0-10.0); NEUT # 10.1 K/uL (1.8-7.0); NEUT % 77.9 % (50.0-75.0); RBC 4.73 Mil/uL (4.40-5.90); RED CELL DISTRIBUTION WIDTH 14.2 % (11.5-14.5)
--- NOTE | 2018-03-18 08:40 | CP.PCM.DIS ---
Provider - Provider Date of Admission: 03/12/18 17:55 Attending physician: Cheikh Chen MD Consults: Urologist Dr Hannon C[employer] Specialist Dr Estrada Time Spent in preparation of Discharge (in minutes): 20 Hospital Course - Lab Results Lab Results: Micro Results 03/13/18 19:20 Urine,Catheterized Urine Culture - Final No Growth (<1,000 CFU/ML) Most Recent Lab Values WBC 13.0 K/uL (4.8-10.8) H 03/18/18 05:50 RBC 4.73 Mil/uL (4.40-5.90) 03/18/18 05:50 Hgb 15.5 g/dL (12.0-18.0) 03/18/18 05:50 Hct 45.6 % (35.0-51.0) 03/18/18 05:50 MCV 96.4 fl (80.0-94.0) H 03/18/18 05:50 MCH 32.7 pg (27.0-31.0) H 03/18/18 05:50 MCHC 33.9 g/dL (33.0-37.0) 03/18/18 05:50 RDW 14.2 % (11.5-14.5) 03/18/18 05:50 Plt Count 439 K/uL (130-400) H 03/18/18 05:50 MPV 7.6 fl (7.2-11.7) 03/18/18 05:50 Neut % (Auto) 77.9 % (50.0-75.0) H 03/18/18 05:50 Lymph % (Auto) 13.0 % (20.0-40.0) L 03/18/18 05:50 [place] % (Auto) 7.7 % (0.0-10.0) 03/18/18 05:50 Eos % (Auto) 1.3 % (0.0-4.0) 03/18/18 05:50 Baso % (Auto) 0.1 % (0.0-2.0) 03/18/18 05:50 Neut # (Auto) 10.1 K/uL (1.8-7.0) H 03/18/18 05:50 Lymph # (Auto) 1.7 K/uL (1.0-4.3) 03/18/18 05:50 [place] # (Auto) 1.0 K/uL (0.0-0.8) H 03/18/18 05:50 Eos # (Auto) 0.2 K/uL (0.0-0.7) 03/18/18 05:50 Baso # (Auto) 0.0 K/uL (0.0-0.2) 03/18/18 05:50 Neutrophils % (Manual) 92 % (42-75) H 03/16/18 08:49 Band Neutrophils % 2 % (0-2) 03/16/18 08:49 Lymphocytes % (Manual) 4 % (20-50) L 03/16/18 08:49 Reactive Lymphs % 1 % (0-0) H 03/16/18 08:49 Monocytes % (Manual) 0 % (0-10) 03/16/18 08:49 Myelocytes % 1 % (0-0) H 03/16/18 08:49 Platelet Estimate Increased (NORMAL) H 03/16/18 08:49 Large Platelets Present 03/16/18 08:49 Giant Platelets Present 03/16/18 08:49 Anisocytosis (manual) Slight 03/12/18 14:56 Macrocytosis (manual) Slight 03/16/18 08:49 Tear Drop Cells Slight 03/16/18 08:49 PT 12.1 Seconds (9.8-13.1) 03/12/18 14:56 INR 1.1 (0.9-1.2) 03/12/18 14:56 pCO2 45 mm/Hg (35-45) 03/15/18 12:04 pO2 62 mm/Hg (80-100) L 03/15/18 12:04 HCO3 27.8 mmol/L (21-28) 03/15/18 12:04 ABG pH 7.42 (7.35-7.45) 03/15/18 12:04 ABG Total CO2 30.6 mmol/L (22-28) H 03/15/18 12:04 ABG O2 Saturation 94.9 % (95-98) L 03/15/18 12:04 ABG O2 Content 20.5 ML/dL (15-23) 03/15/18 12:04 ABG Base Excess 3.9 mmol/L (-2.0-3.0) H 03/15/18 12:04 ABG Hemoglobin 15.9 g/dL (11.7-17.4) 03/15/18 12:04 ABG Carboxyhemoglobin 1.9 % (0.5-1.5) H 03/15/18 12:04 POC ABG HHb (Measured) 4.9 % (0.0-5.0) 03/15/18 12:04 ABG Methemoglobin 1.4 % (0.0-3.0) 03/15/18 12:04 ABG O2 Capacity 21.6 mL/dL (16-24) 03/15/18 12:04 Thiago Test Yes 03/15/18 12:04 A-a O2 Difference 31.0 mm/Hg 03/15/18 12:04 Hgb O2 Saturation 91.7 % (95.0-98.0) L 03/15/18 12:04 FiO2 21.0 % 03/15/18 12:04 Sodium 139 mmol/l (132-148) 03/16/18 08:49 Potassium 4.1 MMOL/L (3.6-5.0) 03/16/18 08:49 Chloride 100 mmol/L (98-107) 03/16/18 08:49 Carbon Dioxide 26 mmol/L (22-30) 03/16/18 08:49 Anion Gap 17 (10-20) 03/16/18 08:49 BUN 22 mg/dl (9-20) H 03/16/18 08:49 Creatinine 0.7 mg/dl (0.8-1.5) L 03/16/18 08:49 Est GFR ( Amer) > 60 03/16/18 08:49 Est GFR (Non-Af Amer) > 60 03/16/18 08:49 Random Glucose 150 mg/dL (75-110) H 03/16/18 08:49 Calcium 9.6 mg/dL (8.4-10.2) 03/16/18 08:49 Total Bilirubin 0.5 mg/dl (0.2-1.3) 03/16/18 08:49 AST 21 U/L (17-59) 03/16/18 08:49 ALT 52 U/L (21-72) 03/16/18 08:49 Alkaline Phosphatase 88 U/L (38-126) 03/16/18 08:49 Troponin I < 0.0120 ng/mL (0.00-0.120) 03/13/18 07:35 NT-Pro-B Natriuret Pep 205 pg/ml (0-900) 03/12/18 14:56 Total Protein 7.1 G/DL (6.3-8.2) 03/16/18 08:49 Albumin 3.3 g/dL (3.5-5.0) L 03/16/18 08:49 Globulin 3.8 gm/dL (2.2-3.9) 03/16/18 08:49 Albumin/Globulin Ratio 0.9 (1.0-2.1) L 03/16/18 08:49 Triglycerides 85 mg/DL (0-149) 03/13/18 04:20 Cholesterol 133 mg/dL (0-199) 03/13/18 04:20 LDL Cholesterol Direct 93 mg/dL (0-129) 03/13/18 04:20 HDL Cholesterol 24 MG/DL (30-70) L 03/13/18 04:20 Vitamin B12 766 pg/mL (239-931) 03/13/18 04:20 Procalcitonin 0.05 NG/ML (0.19-0.49) L 03/17/18 07:20 TSH 3rd Generation 2.66 mIU/ML (0.46-4.68) 03/13/18 04:20 Urine Color Yellow (YELLOW) 03/17/18 18:55 Urine Clarity Slighty-cloudy (Clear) 03/17/18 18:55 Urine pH 6.0 (5.0-8.0) 03/17/18 18:55 Ur Specific [place] 1.021 (1.003-1.030) 03/17/18 18:55 Urine Protein Negative mg/dL (NEGATIVE) 03/17/18 18:55 Urine Glucose (UA) Neg mg/dL (Normal) 03/17/18 18:55 Urine Ketones Negative mg/dL (NEGATIVE) 03/17/18 18:55 Urine Blood Large (NEGATIVE) 03/17/18 18:55 Urine Nitrate Negative (NEGATIVE) 03/17/18 18:55 Urine Bilirubin Negative (NEGATIVE) 03/17/18 18:55 Urine Urobilinogen 0.2-1.0 mg/dL (0.2-1.0) 03/17/18 18:55 Ur Leukocyte Esterase Neg Julia/uL (Negative) 03/17/18 18:55 Urine RBC (Auto) 169 /hpf (0-3) H 03/17/18 18:55 Urine Microscopic WBC 3 /hpf (0-5) 03/17/18 18:55 - Hospital Course Hospital Course: 62 yo ,m, PMh/o pulmonary fibrosis admitted for acute exac of pulmonary fibrosis. Patient evaluated by credentialing manager. Patient reports sob subsided while on steroids and Levaquin. Patient had urinary retention while on hospital. Urologist consulted. Arredondo placed . urine cx neg. urinary retention resolved.arredondo dc. Patient seen by dr Chen. Patient cleared to be discharged. . Patient seen by Dr Chen, Patient cleared to be discharged and f/u with Dr Chen , credentialing manager and Urologist Diagnosis on discharge (1) Interstitial pulmonary fibrosis -chronic 2) URI -resolved (3) Leukocytosis -resolved 4) urinary retention -resolved Discharge Exam - Head Exam Head Exam: ATRAUMATIC, NORMOCEPHALIC - Eye Exam Eye Exam: Normal appearance - ENT Exam ENT Exam: Mucous Membranes Moist - Respiratory Exam Respiratory Exam: Clear to PA & Lateral. absent: Rales, Rhonchi, Wheezes - Cardiovascular Exam Cardiovascular Exam: REGULAR RHYTHM, +S1, +S2 - GI/Abdominal Exam GI & Abdominal Exam: Normal Bowel Sounds, Soft. absent: Tenderness - Extremities Exam Extremities exam: normal inspection - Neurological Exam Neurological exam: Alert, Oriented x3 - Psychiatric Exam Psychiatric exam: Normal Mood - Skin Skin Exam: Intact Discharge Plan - Discharge Medications Prescriptions: levoFLOXacin [Levaquin] 500 mg PO DAILY #7 tab Pantoprazole [Protonix EC Tab] 40 mg PO DAILY #30 ect Prednisone 20 mg PO DAILY #30 tablet - Follow Up Plan Condition: STABLE Additional Instructions: pt. cleared for discharge to Home today by , Rx for meds provided f/u with in 1 week Referrals: Cheikh Chen MD [Staff Provider] -
[2018-03-18] MEDS: levoFLOXacin 500 MG TAB PO SCH (08:57)
[2018-03-18] MEDS: Enoxaparin 40 mg Syringe SC SCH (08:57)
[2018-03-18] MEDS: Fluticasone-Salmeterol 250-50mcg Diskus IH SCH (08:57)
[2018-03-18] MEDS: Pantoprazole 40 mg EC Tab PO SCH (08:58)
[2018-03-18 12:40] VITALS: BP 113/70; PULSE 94; RESP 20; TEMP 98; O2SAT 94
== END 2018-03-18 14:48 | disposition home or self-care (01) | DRG 92 ==
LOC: H.ER 13:34 → H.ERHOLD 17:55 → H.TEL 21:50
PROVIDERS: ADMIT Internal Medicine; ATTEND Internal Medicine
DX: J84.10 Pulmonary fibrosis, unspecified (principal); J44.1 Chronic obstructive pulmonary disease with (acute) exacerbation; N32.0 Bladder-neck obstruction; J06.9 Acute upper respiratory infection, unspecified; D72.829 Elevated white blood cell count, unspecified; R33.9 Retention of urine, unspecified; Z79.51 Long term (current) use of inhaled steroids; Z79.52 Long term (current) use of systemic steroids; Z87.891 Personal history of nicotine dependence

== ENCOUNTER 2018-03-19 00:45 | Emergency (ER) | payer SELFPAY ==
--- NOTE | 2018-03-19 02:09 | ED PDOC ---
HPI: Male Pain Time Seen by Provider: 03/19/18 01:29 Chief Complaint (Nursing): Male Genitourinary Chief Complaint (Provider): Male Genitourinary History Per: Patient History/Exam Limitations: no limitations Onset/Duration Of Symptoms: Hrs (x6.5) Current Symptoms Are (Timing): Still Present Quality Of Discomfort: "Pain" Additional Complaint(s): 62 year old male presents to ED with complaints of urinary retention x6.5 hours and has a past medical history of pulmonary fibrosis, for which he was admitted 1 week ago and discharged yesterday. (+) suprapubic pain. Of note, patient had urinary retention during admission, which was resolved after Pedraza catheter placement. No other complaints, no fever, back pain. PCP: None Past Medical History Reviewed: Historical Data, Nursing Documentation, Vital Signs Vital Signs: Last Vital Signs Temp 98.2 F 03/19/18 01:15 Pulse 86 03/19/18 01:15 Resp 16 03/19/18 01:15 BP 135/76 03/19/18 01:15 Pulse Ox 96 03/19/18 01:15 - Medical History PMH: Denies: HIV, Chronic Kidney Disease Other PMH: pulmonary fibrosis - Family History Family History: States: Unknown Family Hx - Social History Current smoker - smoking cessation education provided: No Ex-Smoker (has not smoked in the last 12 months): No Alcohol: None Drugs: Denies - Home Medications Home Medications: Ambulatory Orders Medication Instructions Recorded Budesonide/Formoterol Fumarate 2 puff IH Q12 03/12/18 [Symbicort 160-4.5 Mcg Inhaler] Fluticasone Nasal [Flonase] 2 spray ALIRIO DAILY PRN 03/12/18 Pantoprazole [Protonix EC Tab] 40 mg PO DAILY #30 ect 03/16/18 Prednisone 20 mg PO DAILY #30 tablet 03/16/18 levoFLOXacin [Levaquin] 500 mg PO DAILY #7 tab 03/16/18 - Allergies Allergies/Adverse Reactions: Allergies Allergy/AdvReac Type Severity Reaction Status Date / Time No Known Allergies Allergy Verified 03/19/18 01:15 Review of Systems ROS Statement: Except As Marked, All Systems Reviewed And Found Negative Gastrointestinal: Positive for: Abdominal Pain (suprapubic) Genitourinary Male: Positive for: Other ((+) urinary retention) Physical Exam - Reviewed Nursing Documentation Reviewed: Yes Vital Signs Reviewed: Yes - Physical Exam Appears: Positive for: Non-toxic, No Acute Distress Skin: Positive for: Normal Color, Warm, Dry Eye Exam: Positive for: Normal appearance Cardiovascular/Chest: Positive for: Regular Rate, Rhythm Respiratory: Positive for: Normal Breath Sounds. Negative for: Respiratory Distress Gastrointestinal/Abdominal: Positive for: Soft, Tenderness (suprapubic tenderness). Negative for: Normal Exam Neurologic/Psych: Positive for: Alert, Oriented - ECG O2 Sat by Pulse Oximetry: 96 (RA) Pulse Ox Interpretation: Normal Medical Decision Making Medical Decision Makin Initial impression: 62 year old male with a history of pulmonary fibrosis and recent discharge presenting with urinary retention Initial plan: Patient is comfortable and was recently evaluated by Dr. Hannon. Patient to receive Pedraza catheter and follow up as outpatient. Urine culture recently obtained shows no growth. 0240 Pedraza catheter placed and 500ccs of urine removed. Patient notes improvement in symptoms. Patient is stable for discharge home with a U-bag and understands need to followup with Dr. Hannon. Dx: urinary retention Scribe Attestation: Documented by Trinh Stark acting as a scribe for Omar Elizabeth MD. Scribe Attestation: All medical record entries made by the Scribe were at my direction and personally dictated by me. I have reviewed the chart and agree that the record accurately reflects my personal performance of the history, physical exam, medical decision making, and the department course for this patient. I have also personally directed, reviewed, and agree with the discharge instructions and disposition. Disposition - Clinical Impression Clinical Impression: Urinary retention - Disposition Referrals: Lenny Bravo MD [Primary Care Provider] - Paul Hannon Jr., MD [Staff Provider] - Disposition: Routine/Home Disposition Time: 02:40 Condition: IMPROVED Instructions: Pedraza Catheter, Male, Urinary Retention Forms: [place] [facility] ([place]) Print Language: YAKUT
[2018-03-19 03:01] VITALS: BP 128/74; PULSE 88; RESP 18; TEMP 98.4
[2018-03-19 03:32] VITALS: O2SAT 96
== END 2018-03-19 03:10 | disposition home or self-care (01) ==
LOC: H.ER 00:45
DX: R33.9 Retention of urine, unspecified (principal); J84.10 Pulmonary fibrosis, unspecified